=== PATIENT | male | born 1935 | race Caucasian/White ===

== ENCOUNTER 2016-12-14 23:49 | Emergency (ER) | payer OTHER ==
[~2016-12-14] VITALS: Ht 185.4 cm; Wt 85.0 kg
[2016-12-14 23:56] VITALS: TEMP 36.8; Ht 185.4 cm; Wt 85.0 kg
[2016-12-15] MEDS ORDERED: OXYMETAZOLINE HCL 0.05% NA SPR 15 ML BTL ONE ×2 (00:01→00:15)
--- NOTE | 2016-12-15 00:04 | EMERGENCY ROOM VISIT NOTE ---
History Report prepared by Jerrica: Lorri Brady Under the Supervision of: Trent PierceO. First contact with patient: 23:53 Chief Complaint: NOSE BLEED (MINOR) Stated Complaint: NOSE BLEED History of Present Illness The patient is a 81 year old male who presents to the Emergency Room with complaints of a sudden nosebleed occurring shortly prior to arrival. He states that he was blowing his nose to get mucous out, which is when he saw the blood. He also reports that he has been swallowing a lot of blood. 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 The patient also reports that he is on Coumadin. Pt denies headache, change in vision, fevers, chest pain, shortness of breath, nausea, vomiting, diarrhea, pain with urination, and melena. Rehab paperwork accompanying him showed INR checked earlier today and was 2.23. Source of History: patient Onset: shortly prior to arrival Position: nose Quality: other (bleed) Timing: other (sudden ) Associated Symptoms: No fevers, No chest pain, No SOB, No nausea, No vomiting, No melena, No diarrhea, No urinary symptoms Review of Systems See HPI for pertinent positives & negatives. A total of 10 systems reviewed and were otherwise negative. Past Medical & Surgical Medical Problems: (1) CHF (congestive heart failure) (2) Diabetes (3) GERD (gastroesophageal reflux disease) (4) Heart disease (5) Kidney disease Surgical Problems: (1) Heart valve replaced (2) Pacemaker Family History No pertinent family history stated. Social History Smokeless Tobacco Use: Unknown Occupation Status: retired Current/Historical Medications Scheduled Acetaminophen (Tylenol), 500 MG PO Q4 Aspirin (Aspirin Ec), 81 MG PO DAILY Famotidine (Pepcid), 20 MG PO DAILY Furosemide (Lasix), 80 MG PO BID Glipizide (Glucotrol), 5 MG PO BIDM Insulin Aspart (Novolog), SQ ACHS Multivit/Min/Iron/Fol Ac/Pren ( Vitamin), 1 TAB PO DAILY Nitroglycerin (Nitrostat), 0.4 MG UT PRN Potassium Chloride (K-Tab), 20 MEQ PO BIDM Saline ([place] Nasal [place]), 1 SPRAY CADE Q4 Warfarin Sod (Coumadin), 2 MG PO DAILY Scheduled PRN Bisacodyl (Bisacodyl), 10 MG [place] DAILY PRN for Constipation Docusate Sodium (Docusate Sodium), 100 MG PO BID PRN for Constipation Lorazepam (Ativan), 1 TAB PO Q6H PRN for Anxiety/Agitation Oxycodone Ir (Roxicodone Ir), 5 MG PO Q4H PRN for Severe Pain Ranitidine (Zantac), 150 MG PO DAILY PRN for GI Upset Sennosides-Docusate Sodium (Docusate Sodium/Senna), 1 TAB PO DAILY PRN for Constipation Zolpidem Tartrate (Ambien), 10 MG PO HS PRN for Insomnia Allergies Coded Allergies: No Known Allergies (Unverified , 12/15/16) Physical Exam Vital Signs Date Time Temp Pulse Resp B/P (MAP) Pulse Ox O2 Delivery O2 Flow Rate FiO2 12/15/16 01:59 91 19 122/78 94 Room Air 12/15/16 00:04 140/84 12/14/16 23:56 36.8 87 18 90/57 93 Room Air Physical Exam GENERAL: alert, well appearing, well nourished, no distress, non-toxic EYE EXAM: normal conjunctiva, PERRL and EOM's grossly intact OROPHARYNX: no exudate, no erythema, lips, buccal mucosa, and tongue normal and mucous membranes are moist NECK: supple, no nuchal rigidity, no adenopathy, non-tender LUNGS: Clear to auscultation. Normal chest wall mechanics HEART: no murmurs, S1 normal and S2 normal CHEST: Vertical midline incision over sternum healing well and consistent with sternotomy for valve replacement, horizontal incision in left anterior superior chest wall consistent with a recent pacemaker replacement that appears to be healing well. No surrounding erythema, no drainage from either site. ABDOMEN: abdomen soft, non-tender, normo-active bowel sounds, no masses, no rebound or guarding. BACK: Back is symmetrical on inspection and there is no deformity, no midline tenderness, no CVA tenderness. SKIN: no rashes and no bruising UPPER EXTREMITIES: upper extremities are grossly normal. LOWER EXTREMITIES: 2+ bilateral edema. NEURO EXAM: Normal sensorium, cranial nerves II-XII intact, normal speech, no weakness of arms, no weakness of legs. Medical Decision & Procedures Medications Administered Medications (Trade) Dose Ordered Sig/Tommie Route Start Time Stop Time Status Last Admin Dose Admin Oxymetazoline HCl (Afrin 0.05% Nasal [place]) 75 sprays STK-MED ONCE .ROUTE 12/15/16 00:01 12/15/16 00:02 DC 12/15/16 00:01 75 SPRAYS Acetaminophen (Tylenol Tab) 1,000 mg NOW STAT PO 12/15/16 02:15 12/15/16 02:16 DC 12/15/16 02:33 1,000 MG ED Course 2355: The patient was evaluated in room B7. A complete history and physical exam was performed. 0001: Ordered Oxymetazoline HCl 75 sprays NA. 0015: Ordered Oxymetazoline HCl 1 spray NA. 0040: I checked on the patient and he has a fresh clot and no active bleeding on the right. He has hyperemia to the left and no active bleeding. He no longer tastes blood in the back of his throat. 0215: Ordered Tylenol Tab 1,000 mg PO. 0220: Upon reevaluation, the patient is feeling better. I discussed the findings and the treatment plan with the patient. He verbalizes agreement and understanding. He was discharged home. Medical Decision Differential diagnosis: Etiologies such as anterior epistaxis, coagulopathy, traumatic injury, fracture , septal hematoma, posterior epistaxis as well as other pathologies were entertained. Pt well appearing, epistaxis controlled. Did not feel needed repeat labs given labs done earlier today. Discussed sx to watch/return for. No vomiting in the ER. VS stable. No padilla, dizziness, no bleeding from any other source. Feel stable for discharge back to rehab. Medication Reconcilliation Current Medication List: was personally reviewed by me Blood Pressure Screening Patient's blood pressure: Normal blood pressure Impression Primary Impression: Epistaxis Additional Impression: Anticoagulated on Coumadin Scribe Attestation The scribe's documentation has been prepared under my direction and personally reviewed by me in its entirety. I confirm that the note above accurately reflects all work, treatment, procedures, and medical decision making performed by me. Departure Information Dispostion Home / Self-Care Referrals No Doctor, Assigned (PCP) Forms HOME CARE DOCUMENTATION FORM, IMPORTANT VISIT INFORMATION, WORK / SCHOOL INSTRUCTIONS Patient Instructions My [facility] Additional Instructions Please continue all your regular medications including your Coumadin. Please do not blow your nose. You may consider using a saline nasal mist daily to help keep your mucous membranes moist. If you develop any recurrent nosebleeds , please try pinching her nose to apply pressure, do not tip your head back. You may also try applying ice to the bridge of her nose. If the bleeding does not stop, please return the emergency room. If you develop any trouble breathing, bleeding from any other source, fevers, increased nasal secretions or sore throat, vomiting, or any other new concerns, please return the emergency room. Problem Qualifiers
[2016-12-15] MEDS ORDERED: ASPI81TA28 PO (00:26)
[2016-12-15] MEDS ORDERED: DOCUSATE-SENNA PO (00:29)
[2016-12-15] MEDS ORDERED: FURO80TA63 PO (00:30)
[2016-12-15] MEDS ORDERED: GLIP5TAB11 PO (00:31)
[2016-12-15] MEDS ORDERED: PRENTAB26 PO (00:32)
[2016-12-15] MEDS ORDERED: FAMO20TA9 PO (00:33)
[2016-12-15] MEDS ORDERED: POTA1TAB97 PO (00:35)
[2016-12-15] MEDS ORDERED: ACET-1256 PO (00:36)
[2016-12-15] MEDS ORDERED: OXYC1TAB3 PO (00:37)
[2016-12-15] MEDS ORDERED: CMD2 PO (00:38)
[2016-12-15] MEDS ORDERED: BISA10SU5 PR (00:41)
[2016-12-15] MEDS ORDERED: NTRGSL/4 UT (00:41)
[2016-12-15] MEDS ORDERED: SALI0.6510 NAE (00:43)
[2016-12-15] MEDS ORDERED: ZOLP10TA PO (00:45)
[2016-12-15] MEDS ORDERED: NVLG SQ (00:47)
[2016-12-15] MEDS ORDERED: DOCU100C31 PO (00:49)
[2016-12-15] MEDS ORDERED: ZNTT/150 PO (00:51)
[2016-12-15 01:59] VITALS: BP 122/78; PULSE 91; O2SAT 94
[2016-12-15] MEDS ORDERED: ACETAMINOPHEN 500 MG TAB PO STA (02:15)
[2016-12-15] MEDS ORDERED: SENN8.6T36 PO (13:19)
[2016-12-15] MEDS ORDERED: ATV/1 PO (14:16)
== END 2016-12-15 02:35 | disposition home or self-care (01) ==
LOC: C.EDB 23:53
DX: R04.0 Epistaxis (principal); Z79.01 Long term (current) use of anticoagulants; I50.9 Heart failure, unspecified; E11.9 Type 2 diabetes mellitus without complications; K21.9 Gastro-esophageal reflux disease without esophagitis; I51.9 Heart disease, unspecified; N28.9 Disorder of kidney and ureter, unspecified; Z95.0 Presence of cardiac pacemaker; Z95.2 Presence of prosthetic heart valve; Z79.82 Long term (current) use of aspirin; Z79.4 Long term (current) use of insulin; Z79.899 Other long term (current) drug therapy

== ENCOUNTER 2016-12-15 11:33 | Emergency (ER) | payer OTHER ==
[~2016-12-15] VITALS: Ht 185.4 cm; Wt 86.0 kg
[~2016-12-15 11:33] MED LIST: ACET-1256 PO; ASPI81TA28 PO; BISA10SU5 PR; CMD2 PO; DOCU100C31 PO; DOCUSATE-SENNA PO; FAMO20TA9 PO; FURO80TA63 PO; GLIP5TAB11 PO; NTRGSL/4 UT; NVLG SQ; OXYC1TAB3 PO; POTA1TAB97 PO; PRENTAB26 PO; SALI0.6510 NAE; ZNTT/150 PO; ZOLP10TA PO
[2016-12-15 11:40] VITALS: TEMP 36.7; Ht 185.4 cm; Wt 86.0 kg
[2016-12-15] MEDS ORDERED: SENN8.6T36 PO (13:19)
[2016-12-15 13:28] LABS: HEMATOCRIT 26.1 % (42-52); MEAN CELL VOLUME 89.4 fL (80-100); MEAN CORPUSCULAR HEMOGLOBIN 29.5 pg (25-34); MEAN PLATELET VOLUME 8.4 fL (7.4-10.4); PLATELET COUNT 174 K/uL (130-400); RED BLOOD COUNT 2.92 M/uL (4.7-6.1); WHITE BLOOD COUNT 5.65 K/uL (4.8-10.8)
[2016-12-15 13:42] LABS: PARTIAL THROMBOPLASTIN RATIO 1.5; PROTHROMBIN TIME (PATIENT) 22.2 SECONDS (9.0-12.0)
[2016-12-15] MEDS ORDERED: ATV/1 PO (14:16)
--- NOTE | 2016-12-15 14:18 | EMERGENCY ROOM VISIT NOTE ---
ED Visit Note First contact with patient: 12:00 CHIEF COMPLAINT: Ongoing right-sided epistaxis since yesterday HISTORY OF PRESENT ILLNESS: Patient is a 81-year-old white male who returns to the emergency department for ongoing right-sided epistaxis. He was seen in the emergency department last evening for the same complaint. Patient in the last undergone valve replacement, with subsequent pacemaker insertion. He has been at [facility] for rehabilitation, and was just discharged from their facility this morning. He is on a baby aspirin daily, and warfarin 2 mg, given nightly, his last dose was last evening. Per the patient his INR was 2.2 yesterday. He was seen in the emergency department for right-sided epistaxis last evening. Bleeding was controlled with Afrin and pressure, and he was discharged back to the rehabilitation Hospital. Patient states that since returning to [facility] , he has had "constant" bleeding from the right nostril. He states that it bleeds anytime he takes a clamp off so he is essentially The clamp in place since his discharge from our facility. He denies any bleeding to the back of his throat or left-sided bleeding. He denies any headache, lightheadedness or dizziness. He is concerned about blood loss. He is now returning to his home in [place], where he lives alone. He has had some intermittent nasal cannula oxygen at nighttime. He does also report a history of epistaxis prior to his surgeries, which never required ENT evaluation or cauterization. He has no pain or any other complaints at this time. REVIEW OF SYSTEMS: Review of systems as per HPI. All other systems reviewed were negative. 10 systems reviewed. PMH: Electronic medical records are reviewed and summarized as above/below. See Problem List. SOCIAL HISTORY: Patient lives at home by himself in [place] he was just discharged from rehabilitation at [facility] this morning. Nonsmoker. PHYSICAL EXAM: Vital Signs: Reviewed Nurse's notes. CONSTITUTIONAL: Patient is a pleasant, well-appearing 81-year-old white male who is awake and alert and CT of the bedside in no acute distress. He has a nasal clamp placed. HEENT: Normocephalic, atraumatic. Pupils equal, round, reactive to light and accommodation. EOMs intact without nystagmus. Sclera are anicteric. Tympanic membranes intact, with normal landmarks. External canals are clear. Oral is clear. No blood in the posterior pharynx. Mucous membranes are moist. Exam of the nostrils reveals some dried blood noted in the left nare, clot noted in the right nare. Clot was removed with forceps. There was no active bleeding, no obvious source of bleed. EMERGENCY DEPARTMENT COURSE: Patient was seen and evaluated as above. His old records were reviewed. He was observed in the emergency department for over 90 minutes with the clamp off. He was given food and drink, was ambulatory in the exam room up into the bathroom, and had no recurrence of his epistaxis. Laboratory studies were collected. H&H is 8.6 and 26.1, INR is 2.0. The patient and his family friend were reassured. His epistaxis is likely multifactorial-dry mucous membranes, anticoagulation, nasal oxygen, etc. He is otherwise hemodynamically stable. Blood pressure is controlled. Given the lack of active bleeding here in the emergency department, it was not felt that there was any benefit to further intervention, although different options were considered including gelfoam, Hemaderm powder, and nasal packing. Conservative care measures were discussed with the patient. He has a nasal clamp in Afrin that was provided to him last evening, and he was instructed on measures should the bleeding resume once he returns home. He was encouraged to use a saline nasal spray, and run a coolmist humidifier as well. Certainly if he is unable to get the bleeding controlled using Afrin and the clamp, he should go to his local emergency department. He was otherwise instructed to continue his regular medications and follow-up with his doctors as he has already arranged for next week. He expressed understanding of this and was agreeable. He is discharged home with his family friend in good condition. Patient was reviewed with attending physician. Medication reconciliation: I attest that I have personally reviewed the patient' s current medication list. Blood pressure screening : Patient was found to have normal blood pressure on screening and does not require follow-up. Problem List Medical Problems: (1) CHF (congestive heart failure) Status: Chronic (2) Diabetes Status: Chronic (3) GERD (gastroesophageal reflux disease) Status: Chronic (4) Heart disease Status: Chronic (5) Kidney disease Status: Chronic Surgical Problems: (1) Heart valve replaced Status: Chronic (2) Pacemaker Status: Chronic Current/Historical Medications Scheduled Acetaminophen (Tylenol), 500 MG PO Q4 Aspirin (Aspirin Ec), 81 MG PO DAILY Famotidine (Pepcid), 20 MG PO DAILY Furosemide (Lasix), 80 MG PO BID Glipizide (Glucotrol), 5 MG PO BIDM Insulin Aspart (Novolog), SQ ACHS Multivit/Min/Iron/Fol Ac/Pren ( Vitamin), 1 TAB PO DAILY Nitroglycerin (Nitrostat), 0.4 MG [place] PRN Potassium Chloride (K-Tab), 20 MEQ PO BIDM Saline ([place] Nasal [place]), 1 SPRAY CADE Q4 Warfarin Sod (Coumadin), 2 MG PO DAILY Scheduled PRN Bisacodyl (Bisacodyl), 10 MG [place] DAILY PRN for Constipation Docusate Sodium (Docusate Sodium), 100 MG PO BID PRN for Constipation Lorazepam (Ativan), 1 TAB PO Q6H PRN for Anxiety/Agitation Oxycodone Ir (Roxicodone Ir), 5 MG PO Q4H PRN for Severe Pain Ranitidine (Zantac), 150 MG PO DAILY PRN for GI Upset Sennosides-Docusate Sodium (Docusate Sodium/Senna), 1 TAB PO DAILY PRN for Constipation Zolpidem Tartrate (Ambien), 10 MG PO HS PRN for Insomnia Allergies Coded Allergies: No Known Allergies (Unverified , 12/15/16) Vital Signs Date Time Temp Pulse Resp B/P (MAP) Pulse Ox O2 Delivery O2 Flow Rate FiO2 12/15/16 14:30 72 18 126/70 96 12/15/16 11:40 36.7 74 20 133/76 94 Room Air Laboratory Results 12/15/16 12:47 Test 12/15/16 12:47 Red Blood Count 2.92 M/uL (4.7-6.1) Mean Corpuscular Volume 89.4 fL (80-100) Mean Corpuscular Hemoglobin 29.5 pg (25-34) Mean Corpuscular Hemoglobin Concent 33.0 g/dl (32-36) RDW Standard Deviation 62.0 fL (36.4-46.3) RDW Coefficient of Variation 18.8 % (11.5-14.5) Mean Platelet Volume 8.4 fL (7.4-10.4) Prothrombin Time 22.2 SECONDS (9.0-12.0) Prothromb Time International Ratio 2.0 (0.9-1.1) Activated Partial Thromboplast Time 39.7 SECONDS (21.0-31.0) Partial Thromboplastin Ratio 1.5 Departure Information Impression Primary Impression: Epistaxis Prescriptions Lorazepam (ATIVAN) 1 Mg Tab 1 TAB PO Q6H Y for Anxiety/Agitation, #10 TAB For Initial Treatment Prov: Karen Jin PA 12/15/16 Referrals Aldo Mancuso D.O. (PCP) Patient Instructions My [facility] Additional Instructions If nosebleed recurs, blow nose to completely clear all clots. Apply 2 squirts of Afrin to each nostril, then apply the nasal clamp, and leave in place, undisturbed for 60 minutes. If bleeding persists, seek immediate medical attention at your local emergency department. Continue current medications. Saline nasal spray as needed. Cold-mist humidifier at bedtime. Follow-up with your physicians as you have scheduled.
[2016-12-15 14:30] VITALS: BP 126/70; PULSE 72; O2SAT 96
--- NOTE | 2016-12-15 22:17 | EMERGENCY ROOM VISIT NOTE ---
ED Visit Note First contact with patient: 12:00 HPI: Epistaxis last night. No further bleeding today. Plan: Labs unremarkable. AFVSS. pcp f/u. I reviewed the patient's past medical history, medications, and visit nursing notes. I discussed the case with the physician process assistant and agree with the findings and plan as documented in the physician assistants note.
== END 2016-12-15 14:31 | disposition home or self-care (01) ==
LOC: C.EDB 11:35 → C.EDD 14:31
DX: R04.0 Epistaxis (principal); I50.9 Heart failure, unspecified; E11.9 Type 2 diabetes mellitus without complications; K21.9 Gastro-esophageal reflux disease without esophagitis; I51.9 Heart disease, unspecified; N28.9 Disorder of kidney and ureter, unspecified; Z95.2 Presence of prosthetic heart valve; Z95.0 Presence of cardiac pacemaker; Z79.82 Long term (current) use of aspirin; Z79.4 Long term (current) use of insulin; Z79.01 Long term (current) use of anticoagulants; Z79.899 Other long term (current) drug therapy